=== PATIENT | male | born 1980 | race American Indian/Alaskan Native ===

== ENCOUNTER 2019-05-30 14:16 | Emergency (ER) | payer SELFPAY ==
--- NOTE | 2019-05-30 17:00 | Event Note ---
ED Screening Note ED Screening Note: The patient was seen in triage for dizziness, weakness and syncope Labs/imaging ordered to evaluate for a cause of this complaint. Vital signs reviewed, patient awake and alert in NAD. This initial assessment/diagnostic orders/clinical plan/treatment(s) is/are subject to change based on patients health status, clinical progression and re- assessment by fellow clinical providers in the ED. Further treatment and workup at subsequent clinical providers discretion. Patient/guardian urged not to elope from the ED as their condition may be serious if not clinically assessed and managed. Initial orders include: labs, xray and ct
--- NOTE | 2019-05-30 17:25 | XRay Report ---
CHEST 2 VIEWS INDICATION: Syncope. COMPARISON: None. FINDINGS: Support devices: None. Heart: Within normal limits. Lungs/Pleura: No acute air space or interstitial disease. No significant pleural effusion. IMPRESSION: No acute findings. Signer Name: Van Larsen MD Signed: 05/30/2019 5:21 PM Workstation Name: [id number]
[2019-05-30 17:28] LABS: Basophils % (Auto) 0.4 % (0.0-1.8); Eosinophils # (Auto) 0.1 K/mm3 (0.0-0.4); Eosinophils % (Auto) 1.3 % (0.0-4.3); Hemoglobin 14.5 gm/dl (11.8-15.2); Lymphocytes # (Auto) 1.5 K/mm3 (1.2-5.4); Lymphocytes % (Auto) 35.6 % (13.4-35.0); Monocytes # (Auto) 0.3 K/mm3 (0.0-0.8); Monocytes % (Auto) 6.8 % (0.0-7.3)
[2019-05-30 17:32] LABS: Hematocrit 45.6 % (35.5-45.6); Mean Corpuscular HGB Conc 33 % (32-34); Mean Corpuscular Volume 93 fl (84-94); Platelet Count 276 K/mm3 (140-440); Red Blood Count 4.89 M/mm3 (3.65-5.03); Red Cell Distribution Width 13.3 % (13.2-15.2)
[2019-05-30 17:51] LABS: Alanine Aminotransferase 22 units/L (7-56); Albumin 4.7 g/dL (3.9-5); BUN/Creatinine Ratio 14; Blood Urea Nitrogen 10 mg/dL (9-20); Calcium 9.6 mg/dL (8.4-10.2); Hemolysis Index 44
--- NOTE | 2019-05-30 18:04 | Cat Scan Report ---
CT head/brain wo con INDICATION / CLINICAL INFORMATION: 38 years Male; Syncope. TECHNIQUE: Routine CT head without contrast. All CT scans at this location are performed using CT dos e reduction for ALARA by means of automated exposure control. COMPARISON: None. FINDINGS: BRAIN / INTRACRANIAL CONTENTS: The brain appears to demonstrate appropriate attenuation. The ventricu lar system is within normal limits in size and configuration. There is no clear CT evidence of acute intracranial hemorrhage or significant mass effect. ORBITS: No significant abnormality of visualized orbits. SINUSES / MASTOIDS: No significant abnormality the visualized paranasal sinuses or mastoid air cells. CRANIOCERVICAL JUNCTION: No significant abnormality. ADDITIONAL FINDINGS: None. IMPRESSION: 1. There is no CT evidence of acute intracranial process. Signer Name: Jaydon Melendrez MD Signed: 05/30/2019 6:00 PM Workstation Name: [id number]
[2019-05-30] MEDS ORDERED: DICYCLOMINE 20 MG/2 ML INJ IM ONE (19:22)
[2019-05-30] MEDS ORDERED: SODIUM CHLORIDE 0.9% 1000 ML 1,000 ML IV ONE (19:22)
[2019-05-30] MEDS ORDERED: ONDANSETRON 4 MG/2 ML INJ IV ONE (19:22)
--- NOTE | 2019-05-30 19:32 | Emergency Department Report ---
ED General Adult HPI - General Chief complaint: Weakness Stated complaint: HEADACHE/WEAKNESS/FEVER Time Seen by Provider: 05/30/19 16:57 Source: patient Mode of arrival: Ambulatory Limitations: No Limitations - History of Present Illness Initial comments: Patient is a 38-year-old male presents emergency room with complaints of URI symptoms that began 4-5 days ago. He has associated generalized body aches, chills, nausea, vomiting, diarrhea, headache, dry cough, lightheadedness. He states that he possibly had a syncopal episode at home today but states that it was only for a couple of seconds. He denies any seizure-like activity. He denies any productive cough, fever, abdominal pain. He has a past medical history of sciatica and seizures. He states he saw a neurologist at [facility] and was placed on gabapentin. He states that he takes gabapentin 600 mg twice a day. He states that he has not taken his medication "in a while." - Related Data Previous Rx's Medication Instructions Recorded Last Taken Type Dicyclomine [Bentyl] 20 mg PO Q8HR PRN #14 tablet 05/30/19 Unknown Rx Gabapentin [Neurontin] 600 mg PO BID 14 Days #28 tablet 05/30/19 Unknown Rx Ondansetron [Zofran Odt] 4 mg PO Q8HR PRN #14 tab.rapdis 05/30/19 Unknown Rx Allergies Allergy/AdvReac Type Severity Reaction Status Date / Time carbamazepine [From Tegretol] Allergy Unknown Verified 05/30/19 14:23 ED Review of Systems ROS: Stated complaint: HEADACHE/WEAKNESS/FEVER Other details as noted in HPI Comment: All other systems reviewed and negative ED Past Medical Hx - Past Medical History Previous Medical History?: Yes Hx Seizures: Yes - Surgical History Past Surgical History?: No - Social History Smoking Status: Current Every Day Smoker Substance Use Type: Alcohol - Medications Home Medications: Home Medications Medication Instructions Recorded Confirmed Last Taken Type Dicyclomine [Bentyl] 20 mg PO Q8HR PRN #14 tablet 05/30/19 Unknown Rx Gabapentin [Neurontin] 600 mg PO BID 14 Days #28 tablet 05/30/19 Unknown Rx Ondansetron [Zofran Odt] 4 mg PO Q8HR PRN #14 tab.rapdis 05/30/19 Unknown Rx ED Physical Exam - General Limitations: No Limitations General appearance: alert, in no apparent distress - Head Head exam: Present: atraumatic, normocephalic - Eye Eye exam: Present: normal appearance, PERRL, EOMI - ENT ENT exam: Present: mucous membranes moist - Respiratory Respiratory exam: Present: normal lung sounds bilaterally. Absent: respiratory distress, wheezes, rales, rhonchi, stridor, chest wall tenderness, accessory muscle use, decreased breath sounds, prolonged expiratory - Cardiovascular Cardiovascular Exam: Present: regular rate, normal rhythm, normal heart sounds. Absent: systolic murmur, diastolic murmur, rubs, gallop - Neurological Exam Neurological exam: Present: alert, oriented X3, CN II-XII intact, normal gait. Absent: motor sensory deficit - Psychiatric Psychiatric exam: Present: normal affect, normal mood - Skin Skin exam: Present: warm, dry, intact ED Course Vital Signs 05/30/19 05/30/19 05/30/19 14:27 16:55 21:05 Temperature 97.5 F L 97.5 F L Pulse Rate 74 78 62 Respiratory 20 20 18 Rate Blood Pressure 128/84 128/84 Blood Pressure 128/76 [Right] O2 Sat by Pulse 98 98 98 Oximetry ED Medical Decision Making - Lab Data Result diagrams: 05/30/19 17:13 05/30/19 17:13 Lab Results 05/30/19 05/30/19 Range/Units 17:13 17:13 WBC 4.3 L (4.5-11.0) K/mm3 RBC 4.89 (3.65-5.03) M/mm3 Hgb 14.5 (11.8-15.2) gm/dl Hct 45.6 (35.5-45.6) % MCV 93 (84-94) fl MCH 31 (28-32) pg MCHC 33 (32-34) % RDW 13.3 (13.2-15.2) % Plt Count 276 (140-440) K/mm3 Lymph % (Auto) 35.6 H (13.4-35.0) % Howell % (Auto) 6.8 (0.0-7.3) % Eos % (Auto) 1.3 (0.0-4.3) % Baso % (Auto) 0.4 (0.0-1.8) % Lymph # 1.5 (1.2-5.4) K/mm3 Howell # 0.3 (0.0-0.8) K/mm3 Eos # 0.1 (0.0-0.4) K/mm3 Baso # 0.0 (0.0-0.1) K/mm3 Seg Neutrophils % 55.9 (40.0-70.0) % Seg Neutrophils # 2.4 (1.8-7.7) K/mm3 Sodium 140 (137-145) mmol/L Potassium 4.2 (3.6-5.0) mmol/L Chloride 102.0 (98-107) mmol/L Carbon Dioxide 27 (22-30) mmol/L Anion Gap 15 mmol/L BUN 10 (9-20) mg/dL Creatinine 0.7 L (0.8-1.5) mg/dL Estimated GFR > 60 ml/min BUN/Creatinine Ratio 14 % Glucose 69 L (75-100) mg/dL Calcium 9.6 (8.4-10.2) mg/dL Total Bilirubin 0.70 (0.1-1.2) mg/dL AST 21 (5-40) units/L ALT 22 (7-56) units/L Alkaline Phosphatase 64 (35-129) units/L Total Protein 8.2 (6.3-8.2) g/dL Albumin 4.7 (3.9-5) g/dL Albumin/Globulin Ratio 1.3 % - EKG Data EKG shows normal: sinus rhythm, axis, intervals, QRS complexes Rate: normal - EKG Data 05/30/19 20:54 normal early repolarization pattern LVH NO STEMI - Radiology Data Radiology results: report reviewed CT head/brain wo con INDICATION / CLINICAL INFORMATION: 38 years Male; Syncope. TECHNIQUE: Routine CT head without contrast. All CT scans at this location are performed using CT dose reduction for ALARA by means of automated exposure control. COMPARISON: None. FINDINGS: BRAIN / INTRACRANIAL CONTENTS: The brain appears to demonstrate appropriate attenuation. The ventricular system is within normal limits in size and configuration. There is no clear CT evidence of acute intracranial hemorrhage or significant mass effect. ORBITS: No significant abnormality of visualized orbits. SINUSES / MASTOIDS: No significant abnormality the visualized paranasal sinuses or mastoid air cells. CRANIOCERVICAL JUNCTION: No significant abnormality. ADDITIONAL FINDINGS: None. IMPRESSION: 1. There is no CT evidence of acute intracranial process. Signer Name: Jaydon Melendrez MD Signed: 05/30/2019 6:00 PM Workstation Name: [id number] Transcribed By: MR Dictated By: Jaydon Melendrez MD Electronically Authenticated By: Jaydon Melendrez MD Signed Date/Time: 05/30/19 1800 DD/ 1755 TD/TT: CHEST 2 VIEWS INDICATION: Syncope. COMPARISON: None. FINDINGS: Support devices: None. Heart: Within normal limits. Lungs/Pleura: No acute air space or interstitial disease. No significant pleural effusion. IMPRESSION: No acute findings. Signer Name: Van Larsen MD Signed: 05/30/2019 5:21 PM Workstation Name: [id number] Transcribed By: ES Dictated By: Van Larsen MD Electronically Authenticated By: Van Larsen MD Signed Date/Time: 05/30/19 1721 DD/ 1720 TD/TT: - Medical Decision Making Patient is a 38-year-old male presents emergency room with complaints of URI symptoms that began 4-5 days ago. He has associated generalized body aches, chills, nausea, vomiting, diarrhea, headache, dry cough, lightheadedness. He states that he possibly had a syncopal episode at home today but states that it was only for a couple of seconds. He denies any seizure-like activity. He denies any productive cough, fever, abdominal pain. He has a past medical history of sciatica and seizures. He states he saw a neurologist at [facility] and was placed on gabapentin. He states that he takes gabapentin 600 mg twice a day. He states that he has not taken his medication "in a while." Vitals are normal. Labs with mildly decreased glucose at 69, pt states he has not eaten anything today, pt given [address] head and chest x-ray with no acute process. EKG with LVH and normal early re-pole pattern, no STEMI, no arrhythmia. Patient given 1 L IVF, zofran, and bentyl. Patient states he is feeling much better. Patient was able to tolerate p.o. intake in the emergency room without difficulty. Patient given prescription for Bentyl and Zofran. Patient given a 2-week refill of his gabapentin but advised patient that this needed to be monitored and future refills will need to be through a primary care doctor or neurologist. advised pt to please take medication as prescribed. Increase your fluid intake over the next several days. Eat a bland diet. Follow-up with a primary care doctor. Follow-up with a neurologist, your seizure medications will need to be managed and monitored by them. Return to the emergency room for any new or worsening symptoms. - Differential Diagnosis URI, PNA, viral syndrome, influenza, gastroenteritis, colitis Critical care attestation.: If time is entered above; I have spent that time in minutes in the direct care of this critically ill patient, excluding procedure time. ED Disposition Clinical Impression: Nausea vomiting and diarrhea, Viral illness, Generalized weakness, Hypoglycemia Syncope Qualifiers: Syncope type: unspecified Qualified Code(s): R55 - Syncope and collapse Disposition: - TO HOME OR SELFCARE Is pt being admited?: No Does the pt Need Aspirin: No Condition: Stable Instructions: Syncope (ED), Gastroenteritis (ED) Additional Instructions: Please take medication as prescribed. Increase your fluid intake over the next several days. Eat a bland diet. Follow-up with a primary care doctor. Follow- up with a neurologist, your seizure medications will need to be managed and monitored by them. Return to the emergency room for any new or worsening symptoms. Prescriptions: Dicyclomine [Bentyl] 20 mg PO Q8HR PRN #14 tablet PRN Reason: abdominal cramping Gabapentin [Neurontin] 600 mg PO BID 14 Days #28 tablet Ondansetron [Zofran Odt] 4 mg PO Q8HR PRN #14 tab.rapdis PRN Reason: Nausea And Vomiting Referrals: CHUCK MIRANDA MD [Staff Physician] - 2-3 Days [facility] [Outside] - 2-3 Days [facility] [Outside] - 2-3 Days JOAN HOWELL MD [Referring] - 2-3 Days EVA NAVA MD [Staff Physician] - 2-3 Days Time of Disposition: 20:50 Print Language: SAMI
[2019-05-30 21:07] VITALS: BP 128/76
== END 2019-05-30 22:00 | disposition home or self-care (01) ==
LOC: ED 14:16
DX: E16.1 Other hypoglycemia (principal); R55 Syncope and collapse; B34.9 Viral infection, unspecified; F17.200 Nicotine dependence, unspecified, uncomplicated; Z88.6 Allergy status to analgesic agent
CPT/HCPCS: 36415; 70450; 71046; 80053; 85025; 93005; 93010; 96361; 96372; 96374; 99284; J0500; J2405; J7030

== ENCOUNTER 2019-12-17 17:23 | Emergency (ER) | payer SELFPAY ==
[2019-12-17 17:35] VITALS: BP 111/71
--- NOTE | 2019-12-17 19:10 | XRay Report ---
RIGHT SHOULDER 3 VIEWS INDICATION / CLINICAL INFORMATION: MAIN. COMPARISON: None available. FINDINGS: Right shoulder: No fracture, dislocation or other significant abnormality. Left shoulder: No fracture, dislocation or other significant abnormality. Signer Name: Acosta Hawkins MD Signed: 12/17/2019 7:06 PM Workstation Name: [id number]
--- NOTE | 2019-12-17 19:59 | Emergency Department Report ---
ED Fall HPI - General Chief Complaint: Shoulder Injury Stated Complaint: BI SHOULDER/BACK PAIN Time Seen by Provider: 12/17/19 19:41 Source: patient Mode of arrival: Ambulatory - History of Present Illness Initial Comments: Patient is a 39-year-old male who presents emergency room after a fall that occurred prior to arrival today. He states that he was crushing up boxes and ac cidentally slipped and fell. He states that he landed on his left shoulder. He states that he also caught himself with his right arm and also has right shoulder pain. He denies ever injuring in the past. He states he also has some mild right lower back discomfort. He states he was ambulatory immediately after the incident has been since then. He denies any loss of consciousness, vomiting, vision changes, numbness, weakness, bowel or bladder incontinence, any other injury. He has a past medical history of sciatica and seizures. He states that he takes gabapentin. He states he has an allergy to Tegretol. - Related Data Previous Rx's Medication Instructions Recorded Last Taken Type Dicyclomine [Bentyl] 20 mg PO Q8HR PRN #14 tablet 05/30/19 Unknown Rx Gabapentin [Neurontin] 600 mg PO BID 14 Days #28 tablet 05/30/19 Unknown Rx Ondansetron [Zofran Odt] 4 mg PO Q8HR PRN #14 tab.rapdis 05/30/19 Unknown Rx Menthol/Camphor [[place] 1 applicatio TP BID #8 oint...g. 12/17/19 Unknown Rx Ointment] Naproxen [EC-Naprosyn] 500 mg PO BID PRN #14 tablet. 12/17/19 Unknown Rx Allergies Allergy/AdvReac Type Severity Reaction Status Date / Time carbamazepine [From Tegretol] Allergy Unknown Verified 05/30/19 14:23 ED Review of Systems ROS: Stated complaint: BI SHOULDER/BACK PAIN Other details as noted in HPI Comment: All other systems reviewed and negative ED Past Medical Hx - Past Medical History Previous Medical History?: Yes Hx Seizures: Yes - Social History Smoking Status: Current Every Day Smoker Substance Use Type: Alcohol - Medications Home Medications: Home Medications Medication Instructions Recorded Confirmed Last Taken Type Dicyclomine [Bentyl] 20 mg PO Q8HR PRN #14 tablet 05/30/19 Unknown Rx Gabapentin [Neurontin] 600 mg PO BID 14 Days #28 tablet 05/30/19 Unknown Rx Ondansetron [Zofran Odt] 4 mg PO Q8HR PRN #14 tab.rapdis 05/30/19 Unknown Rx Menthol/Camphor [[place] 1 applicatio TP BID #8 oint...g. 12/17/19 Unknown Rx Ointment] Naproxen [EC-Naprosyn] 500 mg PO BID PRN #14 tablet.dr 12/17/19 Unknown Rx ED Physical Exam - General Limitations: No Limitations General appearance: alert, in no apparent distress - Head Head exam: Present: atraumatic, normocephalic - Eye Eye exam: Present: normal appearance - ENT ENT exam: Present: mucous membranes moist - Neck Neck exam: Present: normal inspection, full ROM. Absent: tenderness - Respiratory Respiratory exam: Present: normal lung sounds bilaterally. Absent: respiratory distress, wheezes, rales, rhonchi, stridor, chest wall tenderness, accessory muscle use, decreased breath sounds, prolonged expiratory - Cardiovascular Cardiovascular Exam: Present: regular rate, normal rhythm, normal heart sounds. Absent: systolic murmur, diastolic murmur, rubs, gallop - Extremities Exam Extremities exam: Present: other (bilateral posterior shoulder ttp, no sulcus sign, clavicles are equal, no clavicular ttp, no deformities, FROM of the BUE, neurovascularly intact) - Back Exam Back exam: Present: normal inspection, full ROM, paraspinal tenderness (mild right sided lumbar paraspinal muscular ttp, no midline C-spine, T-spine or L- spine ttp, no step offs, no deformities ). Absent: vertebral tenderness - Neurological Exam Neurological exam: Present: alert, oriented X3, CN II-XII intact, normal gait. Absent: motor sensory deficit - Psychiatric Psychiatric exam: Present: normal affect, normal mood - Skin Skin exam: Present: warm, dry, intact ED Course Vital Signs 12/17/19 17:35 Temperature 98.4 F Pulse Rate 71 Respiratory 16 Rate Blood Pressure 111/71 [Right] O2 Sat by Pulse 98 Oximetry ED Medical Decision Making - Radiology Data Radiology results: report reviewed RIGHT SHOULDER 3 VIEWS INDICATION / CLINICAL INFORMATION: MAIN. COMPARISON: None available. FINDINGS: Right shoulder: No fracture, dislocation or other significant abnormality. Left shoulder: No fracture, dislocation or other significant abnormality. Signer Name: Acosta Hawkins MD Signed: 12/17/2019 7:06 PM Workstation Name: [id number] Transcribed By: TM Dictated By: Acosta Hawkins MD Electronically Authenticated By: Acosta Hawkins MD Signed Date/Time: 12/17/191905 DD/ 03 TD/TT: - Medical Decision Making Patient is a 39-year-old male who presents emergency room after a fall that occurred prior to arrival today. He states that he was crushing up boxes and accidentally slipped and fell. He states that he landed on his left shoulder. He states that he also caught himself with his right arm and also has right shoulder pain. He denies ever injuring in the past. He states he also has some mild right lower back discomfort. He states he was ambulatory immediately after the incident has been since then. He denies any loss of consciousness, vomiting, vision changes, numbness, weakness, bowel or bladder incontinence, any other injury. He has a past medical history of sciatica and seizures. He st ates that he takes gabapentin. He states he has an allergy to Tegretol. vitals are normal. on exam: bilateral posterior shoulder ttp, no sulcus sign, clavicles are equal, no clavicular ttp, no deformities, FROM of the BUE, neurovascularly intact, mild right sided lumbar paraspinal muscular ttp, no midline C-spine, T- spine or L-spine ttp, no step offs, no deformities, no focal neuro deficits. X-rays ordered prior to my examination. X-ray bilateral shoulders: Right shoulder: No fracture, dislocation or other significant abnormality. Left shoulder: No fracture, dislocation or other significant abnormality. Offered patient x-ray of the lumbar spine and he politely declined XR imaging of the lumbar spine. Patient has no midline tenderness, no step-offs, no deformities, no focal neuro deficits, appears more consistent with mild lumbar strain. Patient given prescription for naproxen and [place] balm ointment. Advised patient to please use medication as prescribed as needed. May use ice pack, heating pad, rest, Epson salt bath. Follow-up with a primary care doctor. Return to emergency room for any new or worsening symptoms. Critical care attestation.: If time is entered above; I have spent that time in minutes in the direct care of this critically ill patient, excluding procedure time. ED Disposition Clinical Impression: Fall Qualifiers: Encounter type: initial encounter Qualified Code(s): W19.XXXA - Unspecified fall, initial encounter Bilateral shoulder pain Qualifiers: Chronicity: acute Qualified Code(s): M25.511 - Pain in right shoulder Lower back pain Qualifiers: Chronicity: acute Back pain laterality: right Sciatica presence: without sciatica Qualified Code(s): M54.5 - Low back pain Disposition: DC- TO HOME OR SELFCARE Is pt being admited?: No Does the pt Need Aspirin: No Condition: Stable Instructions: Low Back Strain (ED), Arthralgia (ED) Additional Instructions: please use medication as prescribed as needed. May use ice pack, heating pad, rest, Epson salt bath. Follow-up with a primary care doctor. Return to emergency room for any new or worsening symptoms. Prescriptions: Naproxen [EC-Naprosyn] 500 mg PO BID PRN #14 tablet.dr ROSENBAUM Reason: pain Menthol/Camphor [[place] Ointment] 1 applicatio TP BID #8 oint...g. Referrals: PRIMARY CAREMD [Primary Care Provider] - 2-3 Days CHUCK MIRANDA MD [Staff Physician] - 2-3 Days [facility] [Provider Group] - 2-3 Days Forms: Work/School Release Form(ED) Time of Disposition: 20:05 Print Language: ZAMBIAN
== END 2019-12-17 20:23 | disposition home or self-care (01) ==
LOC: ED 17:23
DX: M25.511 Pain in right shoulder (principal); M25.512 Pain in left shoulder; M54.5 Low back pain; F17.200 Nicotine dependence, unspecified, uncomplicated; Z88.8 Allergy status to other drugs, medicaments and biological substances; W19.XXXA Unspecified fall, initial encounter; Y93.89 Activity, other specified; Y92.89 Other specified places as the place of occurrence of the external cause; Y99.8 Other external cause status

== ENCOUNTER 2021-04-30 10:31 | Emergency (ER) | payer SELFPAY ==
[2021-04-30 11:53] VITALS: BP 120/72
--- NOTE | 2021-04-30 12:11 | Emergency Department Report ---
ED ENT HPI - General Chief complaint: Earache Stated complaint: EAR ACHE Time Seen by Provider: 04/30/21 11:59 Source: patient Mode of arrival: Ambulatory Limitations: No Limitations - History of Present Illness Initial comments: 40-year-old male presents to the ER today with complaints of left earache. Onset was about 3 to 4 days ago. He denies any drainage from the ear. He denies any bleeding from the ear. He denies any injury to the ear. Here he denies any hearing loss. He denies any recent URI symptoms. He states that he put some sweet oil in the ear to see if that would help but without much relief. He reports no additional symptoms at this time. MD complaint: ear pain -: days(s) (3-4) - Related Data Previous Rx's Medication Instructions Recorded Last Taken Type Dicyclomine [Bentyl] 20 mg PO Q8HR PRN #14 tablet 05/30/19 Unknown Rx Gabapentin [Neurontin] 600 mg PO BID 14 Days #28 tablet 05/30/19 Unknown Rx Ondansetron [Zofran Odt] 4 mg PO Q8HR PRN #14 tab.rapdis 05/30/19 Unknown Rx Ketorolac [Toradol] 10 mg PO Q6H PRN #20 tab 04/30/21 Unknown Rx cephALEXin [Keflex] 500 mg PO Q8HR #21 cap 04/30/21 Unknown Rx Allergies Allergy/AdvReac Type Severity Reaction Status Date / Time carbamazepine [From Tegretol] Allergy Unknown Verified 05/30/19 14:23 ED Dental HPI - General Chief complaint: Earache Stated complaint: EAR ACHE Time Seen by Provider: 04/30/21 11:59 Source: patient Mode of arrival: Ambulatory Limitations: No Limitations - Related Data Previous Rx's Medication Instructions Recorded Last Taken Type Dicyclomine [Bentyl] 20 mg PO Q8HR PRN #14 tablet 05/30/19 Unknown Rx Gabapentin [Neurontin] 600 mg PO BID 14 Days #28 tablet 05/30/19 Unknown Rx Ondansetron [Zofran Odt] 4 mg PO Q8HR PRN #14 tab.rapdis 05/30/19 Unknown Rx Ketorolac [Toradol] 10 mg PO Q6H PRN #20 tab 04/30/21 Unknown Rx cephALEXin [Keflex] 500 mg PO Q8HR #21 cap 04/30/21 Unknown Rx Allergies Allergy/AdvReac Type Severity Reaction Status Date / Time carbamazepine [From Tegretol] Allergy Unknown Verified 05/30/19 14:23 ED Review of Systems ROS: Stated complaint: EAR ACHE Other details as noted in HPI Comment: All other systems reviewed and negative ENT: ear pain. denies: throat pain, hearing loss, congestion Respiratory: denies: cough, shortness of breath, wheezing Cardiovascular: denies: chest pain, palpitations Gastrointestinal: denies: abdominal pain, nausea, diarrhea, constipation, hematemesis, hematochezia Genitourinary: denies: urgency, dysuria, frequency, hematuria, testicular pain, testicular mass Musculoskeletal: denies: back pain, joint swelling, arthralgia, myalgia Skin: denies: rash, lesions, change in color, change in hair/nails, pruritus Neurological: denies: headache, weakness, paresthesias, confusion, abnormal gait, vertigo Psychiatric: denies: anxiety, depression, auditory hallucinations, visual hallucinations, homicidal thoughts, suicidal thoughts Hematological/Lymphatic: denies: easy bleeding, easy bruising ED Past Medical Hx - Past Medical History Previous Medical History?: Yes Hx Seizures: Yes - Surgical History Past Surgical History?: No - Social History Smoking Status: Current Every Day Smoker Substance Use Type: Alcohol - Medications Home Medications: Home Medications Medication Instructions Recorded Confirmed Last Taken Type Dicyclomine [Bentyl] 20 mg PO Q8HR PRN #14 tablet 05/30/19 Unknown Rx Gabapentin [Neurontin] 600 mg PO BID 14 Days #28 tablet 05/30/19 Unknown Rx Ondansetron [Zofran Odt] 4 mg PO Q8HR PRN #14 tab.rapdis 05/30/19 Unknown Rx Ketorolac [Toradol] 10 mg PO Q6H PRN #20 tab 04/30/21 Unknown Rx cephALEXin [Keflex] 500 mg PO Q8HR #21 cap 04/30/21 Unknown Rx ED Physical Exam - General Limitations: No Limitations General appearance: alert, in no apparent distress - Head Head exam: Present: atraumatic, normocephalic, normal inspection - Eye Eye exam: Present: normal appearance, PERRL, EOMI Pupils: Present: normal accommodation - ENT ENT exam: Present: TM's normal bilaterally - Expanded ENT Exam Expanded Ear exam: Present: other (Echo normal to inspection. Mild clear fluid noted behind TM but TM is not erythematous or bulging no perforation. Patient does have this mild hyperpigmented but also slightly erythematous dry but tender rash just behind his ear. No apparent mastoid tenderness or swelling). Absent: auricular hematoma, auricular trauma TM/Canal exam: Effusion: Right TM, Left TM Mouth exam: Present: normal external inspection - Neck Neck exam: Present: normal inspection - Respiratory Respiratory exam: Present: normal lung sounds bilaterally. Absent: respiratory distress, wheezes, rales, rhonchi - Cardiovascular Cardiovascular Exam: Present: regular rate, normal rhythm, normal heart sounds - Neurological Exam Neurological exam: Present: alert, oriented X3, CN II-XII intact, normal gait - Psychiatric Psychiatric exam: Present: normal affect, normal mood - Skin Skin exam: Present: intact ED Course Vital Signs 04/30/21 11:50 Temperature 98.1 F Respiratory 16 Rate Blood Pressure 120/72 ED Medical Decision Making - Medical Decision Making 40-year-old male presents to the ER today with complaints of left earache. Onset was about 3 to 4 days ago. He denies any drainage from the ear. He denies any bleeding from the ear. He denies any injury to the ear. Here he denies any hearing loss. He denies any recent URI symptoms. He states that he put some sweet oil in the ear to see if that would help but without much relief. He reports no additional symptoms at this time. Patient is well-appearing, nontoxic and not in any significant distress. His gait is normal. He appears hydrated. Patient ear canal appears normal, TM is not erythematous or bulging, no significant amount of effusion noted behind the TM. He does have this mild tender erythematous rash just behind the right ear. Given the fact that it is the main area of pain and tenderness patient will be treated for possible cellulitis. There is no induration or fluctuance. The mastoid was not tender or swollen or erythematous. He had no facial swelling or erythema. He had no trismus or drooling. His vital signs are stable. Discussed suspected diagnosis and treatment plan with patient. Expressed understanding agree with plan. Patient stable at time of discharge. Critical care attestation.: If time is entered above; I have spent that time in minutes in the direct care of this critically ill patient, excluding procedure time. ED Disposition Clinical Impression: Otalgia, Cellulitis of external ear Disposition: HOME / SELF CARE / HOMELESS Is pt being admited?: No Does the pt Need Aspirin: No Condition: Stable Instructions: Cellulitis, Adult, Earache, Adult Additional Instructions: I recommend taking the keflex as prescribed. Take the toradol as prescribed to help with pain. Follow-up with your PCP this week. Return to ED if worse. Prescriptions: cephALEXin [Keflex] 500 mg PO Q8HR #21 cap Ketorolac [Toradol] 10 mg PO Q6H PRN #20 tab PRN Reason: Pain Referrals: CURLY UNGER MD [Staff Physician] - 3-5 Days Time of Disposition: 12:11
== END 2021-04-30 14:06 | disposition home or self-care (01) ==
LOC: ED 10:31
DX: H60.12 Cellulitis of left external ear (principal); F17.200 Nicotine dependence, unspecified, uncomplicated; Z72.89 Other problems related to lifestyle; Z79.899 Other long term (current) drug therapy; Z88.8 Allergy status to other drugs, medicaments and biological substances
CPT/HCPCS: 99282